=== PATIENT | male | born 1975 | race African-American/Black ===

== ENCOUNTER 2021-06-07 13:27 | Emergency (ER) | payer SELFPAY ==
--- OUTSIDE RECORDS SUMMARY | 2021-06-07 13:30 | XMS REPORT | Continuity of Care Document ---
:1975 Author Organization [facility] Address [address] [place] [address] Care Team Providers Name Role Phone Unavailable Unavailable Unavailable Problems This patient has no known problems. Allergies, Adverse Reactions, Alerts This patient has no known allergies or adverse reactions. Medications This patient has no known medications. Procedures This patient has no known procedures. Results Test Description Test Time Test Comments Results Result Comments Source SARS-CoV-2 (COVID-19), RT-PCR/TMA 2021-03-23 15:37:11 Test Item Value Reference Range Interpretation Comme nts SARS-CoV-2 INTERPRETATION NEGATIVE SEE NOTE S ARS-CoV-2 RNA NOT (test code = 66664) DETECTED Negative results do not preclude SARS-C oV-2 infection and should notb e used as the sole basis for patient management deci sions. Negativeresults must be combined with clinical o bservations, patient history ,and epidemiological information. Optimum specime n types and timingfor peak viral levels during infectio ns caused by SARS-CoV-2 have notbeen determined. Col lection of multiple specim ens or types ofspecimens may be necessary to detect virus. I mproper specimencollect ion and handling, sequence variab ility under primers/probes, or organism present below t he limit of detection may l ead to falsenegative r esults. Positive and negative pr edictive values oftesting are h ighly dependent on prevalence. False negative testresults are more likely when prevalence is h igh. SOURCE (test code = 98563) NASOPHARYNGEAL Note: Methodology is Olegario Nikolas Real-Time RT-PCR. The expected r esult or reference range is NEGATIVE (Not Detected). For more information regarding COVID -19 testing to include clinica linformation, methodology det ail, intended use, FDA author ization andrecommended fact sheets for patients or hea lthcare providers, see NewTest Announcement: S ARS-CoV-2 (COVID-19) by N AAT at URL below (note,fact shee ts are provided by method given in report:https:// www.[email or web address]/roosevelt cullen/irene riz[employer]-communications/ Alternatively, see downloadable PDF fact sheet at:https://www. Tins.ly/COVID -19-RT-PCR UNLESS OTHERWISE INDIC ATED, ALL TESTING PERFORMED [facility], [place] [address] LABORATORY DIRE CTOR: MARTÍNEZ HYATT M.D. CLIA NUMBER [id number] [facility]. [id number]
--- NOTE | 2021-06-07 15:06 | RAD REPORT ---
EXAM DESCRIPTION: RAD - Hip Left 2 View - 06/07/2021 2:59 pm CLINICAL HISTORY: PAIN COMPARISON: No comparisons FINDINGS: Severe osteoarthritis affects the left hip. There is [id number] with osteophytosis and f emoral neck buttressing. No fracture seen. Slight sclerotic appearance to the femoral head is present centrally which could indicate AVN. IMPRESSION: Severe osteoarthritis of the left hip. Areas sclerosis in the femoral head could indicate AVN. Nonemergent follow-up MRI left hip would be r ecommended.
--- NOTE | 2021-06-07 15:38 | ER ---
Nurse's Notes [facility] Name: Will Thompson Jr Age: 45 yrs Sex: Male : 1975 Arrival Date: 06/07/2021 Time: 13:29 Bed 16 [facility] MD: Diagnosis: Pain in left hip;Osteoarthritis of hip, unspecified Presentation: 06/07 13:33 Chief complaint: Patient states: "I am having problem with my left hip related to an jd3 old injury. my hip is hurting and having some swelling.". Coronavirus screen: At this time, the client does not indicate any symptoms associated with coronavirus-19. Ebola Screen: No symptoms or risks identified at this time. Initial Sepsis Screen: Does the patient meet any 2 criteria? No. Patient's initial sepsis screen is negative. Does the patient have a suspected source of infection? No. Patient's initial sepsis screen is negative. Risk Assessment: Do you want to hurt yourself or someone else? Patient reports no desire to harm self or others. Onset of symptoms was June 07, 2021. 13:33 Method Of Arrival: Ambulatory jd3 13:33 Acuity: [place] 4 jd3 13:36 Note Ibuprofen 800 mg taken at 0900. jd3 Historical: - Allergies: 13:35 TRAZADONE; jd3 13:35 metformin; jd3 - Home Meds: 13:35 None [Active]; jd3 - PMHx: 13:35 None; jd3 - PSHx: 13:35 None; jd3 - Immunization history:: Adult Immunizations up to date, Client reports having NOT received the Covid vaccine. Flu vaccine is not up to date. - Social history:: Smoking status: Patient reports the use of cigarette tobacco products, smokes one-half pack cigarettes per day. Screenin:06 Abuse screen: Denies threats or abuse. Nutritional screening: No deficits noted. vg1 Tuberculosis screening: No symptoms or risk factors identified. Fall Risk No fall in past 12 months (0 pts). No secondary diagnosis (0 pts). No IV (0 pts). Ambulatory Aid- None/Bed Rest/Nurse Assist (0 pts). Gait- Normal/Bed Rest/Wheelchair (0 pts) Mental Status- Oriented to own ability (0 pts). Total Villatoro Fall Scale indicates No Risk (0-24 pts). Assessment: 15:06 General: Appears in no apparent distress. comfortable, Behavior is calm, cooperative. vg1 Pain: Complains of pain in Left Hip Pain currently is 6 out of 10 on a pain scale. Pain began 2-3 days ago. Neuro: Level of Consciousness is awake, alert, obeys commands, Oriented to person, place, time, situation. Cardiovascular: Patient's skin is warm and dry. Respiratory: Airway is patent Respiratory effort is even, unlabored. GI: No signs and/or symptoms were reported involving the gastrointestinal system. : No signs and/or symptoms were reported regarding the genitourinary system. EENT: No signs and/or symptoms were reported regarding the EENT system. Derm: Skin is intact, is healthy with good turgor. Musculoskeletal: Circulation, motion, and sensation intact. Vital Signs: 13:36 BP 155 / 91; Pulse 78; Resp 17 S; Temp 98.8(TE); Pulse Ox 100% on R/A; Weight 122.02 kg jd3 (R); Height 5 ft. 11 in. (180.34 cm) (R); Pain 6/10; 13:36 Body Mass Index 37.52 (122.02 kg, 180.34 cm) jd3 ED Course: 13:29 Patient arrived in ED. as 13:34 Triage completed. jd3 13:37 Arm band placed on. jd3 13:39 Giana Shoemaker FNP-C is [facility]. kb 13:39 Ralph Sales MD is Attending Physician. kb 14:58 Zuleyka Rosen, RN is Primary Nurse. vg1 15:01 Hip Left 2 View XRAY In Process Unspecified. EDMS 15:06 Patient has correct armband on for positive identification. Placed in gown. Bed in low vg1 position. Call light in reach. Side rails up X 1. 15:06 No provider procedures requiring assistance completed. vg1 15:59 Patient did not have IV access during this emergency room visit. ap3 Administered Medications: No medications were administered Outcome: 15:37 Discharge ordered by . kb 15:59 Discharged to home ambulatory. ap3 15:59 Condition: good 15:59 Discharge instructions given to patient, Instructed on discharge instructions, follow up and referral plans. Demonstrated understanding of instructions, follow-up care. 16:13 Patient left the ED. vg1 Signatures: Dispatcher [employer] EDMS Giana Shoemaker, CARLOS-Tremayne GONZALEZ-Yvette Yu Jonathon RN RN jd3 Hilary Armstrong RN RN sergey3 Zuleyka Rosen RN RN vg1 Corrections: (The following items were deleted from the chart) 13:35 13:35 PMHx: Hypertension; jd3 jd3
--- NOTE | 2021-06-07 15:38 | EDPHYS ---
Physician Documentation [facility] Name: Will Thompson Jr Age: 45 yrs Sex: Male : 1975 Arrival Date: 06/07/2021 Time: 13:29 Bed 16 Private MD: ED Physician Ralph Sales HPI: 06/07 15:36 This 45 yrs old Black Male presents to ER via Ambulatory with complaints of Hip Pain - kb swelling. 15:36 The patient or guardian reports pain. that occurred at work, sustained from a chronic kb condition, climbing stairs, There is no obvious deformity, The patient is able to self ambulate. The patient is able to bear their full body weight. There is no radiation of the patient's discomfort. The complaints affect the left hip. Onset: The symptoms/episode began/occurred 1.5 year(s) ago, and became worse 5 day(s) ago. Modifying factors: The symptoms are alleviated by nothing, the symptoms are aggravated by any movement. Associated signs and symptoms: Loss of consciousness: the patient experienced no loss of consciousness, Pertinent positives: None. Severity of symptoms: At their worst the symptoms were moderate, in the emergency department the symptoms are unchanged. The patient has not experienced similar symptoms in the past. The patient has not recently seen a physician. Historical: - Allergies: 13:35 TRAZADONE; jd3 13:35 metformin; jd3 - Home Meds: 13:35 None [Active]; jd3 - PMHx: 13:35 None; jd3 - PSHx: 13:35 None; jd3 - Immunization history:: Adult Immunizations up to date, Client reports having NOT received the Covid vaccine. Flu vaccine is not up to date. - Social history:: Smoking status: Patient reports the use of cigarette tobacco products, smokes one-half pack cigarettes per day. ROS: 15:35 Constitutional: Negative for fever, chills, and weight loss. kb 15:35 MS/extremity: Positive for pain, swelling, tenderness, of the left hip. 15:35 All other systems are negative. Exam: 15:35 Constitutional: This is a well developed, well nourished patient who is awake, alert, kb and in no acute distress. Head/Face: Normocephalic, atraumatic. ENT: Moist Mucous membranes Respiratory: Respirations even and unlabored. No increased work of breathing. Talking in full sentences Abdomen/GI: Soft, non-tender. No distention Skin: Warm, dry with normal turgor. Normal color. Neuro: Awake and alert, GCS 15, oriented to person, place, time, and situation. Moves all extremities. Normal gait. Psych: Awake, alert, with orientation to person, place and time. Behavior, mood, and affect are within normal limits. 15:35 Musculoskeletal/extremity: Extremities: grossly normal except: noted in the left hip: pain, swelling, tenderness, ROM: intact in all extremities, Circulation is intact in all extremities. Sensation intact. Weight bearing: able to fully bear weight. Vital Signs: 13:36 BP 155 / 91; Pulse 78; Resp 17 S; Temp 98.8(TE); Pulse Ox 100% on R/A; Weight 122.02 kg jd3 (R); Height 5 ft. 11 in. (180.34 cm) (R); Pain 6/10; 13:36 Body Mass Index 37.52 (122.02 kg, 180.34 cm) jd3 MDM: 14:35 Patient medically screened. kb 15:33 Data reviewed: vital signs, nurses notes. Data interpreted: Pulse oximetry: on room air kb is 100 %. Interpretation: normal. Counseling: I had a detailed discussion with the patient and/or guardian regarding: the historical points, exam findings, and any diagnostic results supporting the discharge/admit diagnosis, radiology results, the need for outpatient follow up, a orthopedic surgeon, to return to the emergency department if symptoms worsen or persist or if there are any questions or concerns that arise at home. ED course: Pt states he has had the pain in his hip for about a year and a half, just got worse over the weekend. 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 Discussed CT findings with pt, including possible AVN and need for nonemergent MRI as recommended by radiologist. Pt states he will follow up to have the MRI done. States he is able to walk without too much pain, but climbing the ladders is the main problem. . 06/07 13:58 Order name: Hip Left 2 View XRAY; Complete Time: 15:09 kb Administered Medications: No medications were administered Disposition: 17:50 Co-signature as Attending Physician, Ralph Sales MD I agree with the assessment and kdr plan of care. Disposition Summary: 06/07/21 15:37 Discharge Ordered Location: Home kb Condition: Stable kb Diagnosis - Pain in left hip kb - Osteoarthritis of hip, unspecified kb Followup: kb - With: Emergency Department - When: As needed - Reason: Worsening of condition Followup: kb - With: Private Physician - When: 2 - 3 days - Reason: Recheck today's complaints, Continuance of care, Re-evaluation by your physician Discharge Instructions: - Discharge Summary Sheet kb - Osteoarthritis kb - Avascular Necrosis kb - Hip Pain kb Forms: - Work release form kb - Medication Reconciliation Form kb - Thank You Letter kb - Antibiotic Education kb - Prescription Opioid Use kb Prescriptions: - Diclofenac Sodium 75 mg Oral tablet,delayed release (DR/EC) - take 1 tablet by ORAL route 2 times per day As needed; 30 tablet; Refills: 0, kb Product Selection Permitted Signatures: Dispatcher [employer] EDMS Giana Shoemaker, EXTRA GANG SUPERVISOR-C EXTRA GANG SUPERVISOR-Ralph Medina MD MD kdr Davies, Jonathon RN RN jd3 Corrections: (The following items were deleted from the chart) 13:35 13:35 PMHx: Hypertension; jd3 jd3
[2021-06-08 01:11] VITALS: BP 155/91; TEMP 98.8; O2SAT 100
== END 2021-06-07 16:13 | disposition home or self-care (01) ==
LOC: ER 13:27
DX: M16.12 Unilateral primary osteoarthritis, left hip (principal); F17.210 Nicotine dependence, cigarettes, uncomplicated; Z88.5 Allergy status to narcotic agent; Z88.8 Allergy status to other drugs, medicaments and biological substances
CPT/HCPCS: 99283